=== PATIENT | male | born 1975 | race Caucasian/White ===

== ENCOUNTER 2018-11-30 16:45 | Emergency (ER) | payer MEDICAID ==
[~2018-11-30] VITALS: Ht 165.1 cm; Wt 94.8 kg
[2018-11-30 17:06] VITALS: Ht 165.1 cm; Wt 94.8 kg
[2018-11-30 18:43] VITALS: BP 121/93
== END 2018-11-30 18:44 | disposition home or self-care (01) ==
LOC: ED 16:45
DX: L03.116 Cellulitis of left lower limb (principal)

== ENCOUNTER 2019-07-19 09:06 | Emergency (ER) | payer MEDICAID ==
[~2019-07-19] VITALS: Ht 157.5 cm; Wt 98.9 kg
[2019-07-19 09:14] VITALS: Ht 157.5 cm; Wt 98.9 kg
[2019-07-19 11:19] VITALS: BP 121/73
== END 2019-07-19 11:19 | disposition home or self-care (01) ==
LOC: ED 09:06
DX: S32.2XXA Fracture of coccyx, initial encounter for closed fracture (principal); W18.30XA Fall on same level, unspecified, initial encounter; Y93.89 Activity, other specified; Y92.89 Other specified places as the place of occurrence of the external cause; Y99.8 Other external cause status

== ENCOUNTER 2019-10-26 18:56 | Emergency (ER) | payer MEDICAID ==
[~2019-10-26] VITALS: Ht 165.1 cm; Wt 99.0 kg
[2019-10-26 19:23] VITALS: BP 114/70; Ht 165.1 cm; Wt 99.0 kg
== END 2019-10-26 20:01 | disposition home or self-care (01) ==
LOC: ED 18:56
DX: G89.29 Other chronic pain (principal); M54.5 Low back pain; H10.9 Unspecified conjunctivitis; H11.001 Unspecified pterygium of right eye
CPT/HCPCS: J1885